=== PATIENT | male | born 1935 ===

== ENCOUNTER 2016-08-29 19:53 | Emergency (ER) | payer OTHER ==
--- NOTE | 2016-08-29 21:49 | ED ORDER SUMMARY ---
..... Patient: SUSAN ESTES OrderSheet [facility] VisitID: [id number] [place] [address] 81y, M Registration Date/Time: 08/29/2016 ORDER SHEET Weight: 74.8 kg (stated) Allergies: No Known Drug Allergy GENERAL ORDERS: Chest 2V Urgent (20:26 08/29/2016 HBivens A.R.N.P.) (Ack 20:32 CHagerty ER Lawn Mower Operator) (20:45 MCampbell) Rapid Influenza Screen (Nasal Pharyngeal) (nare) Urgent (20:26 08/29/2016 HBivens A.R.N.P.) (Ack 20:32 CHagerty ER Lawn Mower Operator) CBC w Diff Urgent (20:08/29/2016 HBivens A.R.N.P.) (Ack 20:32 CHagerty ER Lawn Mower Operator) (21:11 RCollier R.N.) BMP Urgent (20:08/29/2016 HBivens A.R.N.P.) (Ack 20:32 CHagerty ER Lawn Mower Operator) (21:11 RCollier R.N.) MEDICATION ORDERS: Tylenol PO 650 mg (NOW) (20:38 08/29/2016 DBeyer R.N. per protocol) (21:04 DBeyer R.N.) IV FLUIDS: IV Saline Lock (20:26 08/29/2016 HBivens A.R.N.P.) (20:33 DBeyer R.N.) ORDER SHEET NOTES: [Electronically signed by Sameera Hoffman A.R.N.P. (22:44 08/29/2016)] [Electronically signed by Phillip Ashley R.N. (01:23 08/30/2016)] [Electronically locked/signed by Phillip Ashley R.N. (:08/30/2016)]
--- NOTE | 2016-08-29 21:49 | ED NURSING NOTES ---
Clinical Report - Nurses [facility] [address] [place] [address] 08/29/2016 19:53 Patient: SUSAN ESTES TRIAGE Triage time 19:58 Aug 29 2016. Acuity: LEVEL 3. Chief Complaint: FEVER and WEAKNESS. --20:03 Phillip Ashley R.N. 19:58 08/29/16. BP: 137/101. HR: 96. RR: 18. O2 saturation: 94%. Temp: 102.6 F. --20:03 Phillip Ashley R.N. 20:06 08/29/16. Pain level now 0/10. --20:07 Phillip Ashley R.N. Weight: 74.8 kg stated. Height/Length: 67 inches Per Patient. BMI: 25.9. --20:03 Phillip Ashley R.N. Medications Gabapentin Oral. --20:00 Phillip Ashley R.N. Allopurinol Oral. --20:00 Phillip Ashley R.N. Omeprazole Oral. --20:00 Phillip Ashley R.N. Vitamin c Oral. --20:00 Phillip Ashley R.N. Allergies No Known Drug Allergy. --20:00 Phillip Ashley R.N. History Arrived by EMS. Historian: patient. ( Pt arrives via ems report of increased weakness 36 hours. pt slide out of a chair and was unable to get up.). The patient has had fever and weakness. Treatment SUPERVISOR METALIZING: ([id number]). SOCIAL HX: Never smoker. Alcohol use; consumes five beers a week. No drug use. --20:03 Phillip Ashley R.N. PROBLEMS: Spinal Stenosis. --20:02 Phillip Ashley R.N. ADDITIONAL SURGERIES: Knee Surgery. --20:01 Phillip Ashley R.N. Interventions ID band on patient. To treatment room. No allergy band on patient. --20:03 Phillip Ashley R.N. PHYSICAL ASSESSMENT ( Pt had urinated on himself prior to arrival, pt changed and clean underwear given to pt.). GENERAL / NEURO / PSYCH: Alert. Oriented X 4. Appears in no acute distress. He has had constant weakness (difficulty transferring and ambulating). HEENT: Pupils equal, round and reactive to light. No facial asymmetry noted. RESPIRATORY: Respirations not labored. Breath sounds within normal limits. CVS: Normal sinus rhythm noted. GI / : Abdomen soft. SKIN: Skin is warm and dry. --20:04 Phillip Ashley R.N. NURSING PROGRESS NOTES secured entrance monitor and pulse oximeter placed on patient. Patient gowned. Two patient identifiers checked. Call light placed in reach. Side rails up x 2. Bed placed in lowest position. Patient ready for evaluation- chart flagged. --20:06 Phillip Ashley R.N. 20:33 08/29/2016 Site #1 started prior to arrival by EMS via IV in the left antecubital space with an 18g angiocath. --20:33 Phillip Ashley R.N. EKG time: (20:06). EKG was performed by a tech and shown to the ED physician. --20:36 Akbar Sharp 21:04 08/29/2016 Tylenol (Acetaminophen) PO 650 mg given. Allergies verified and confirmed 5 rights. --21:04 Phillip Ashley R.N. 20:30 late entry -. Patient ID band checked for patient name and birthdate: family confirmed. Blood samples drawn from the left antecubital space peripheral IV site with syringe by nurse per protocol ; labeled in presence of the patient and sent to lab: rainbow set. Initial blood discarded and additional blood sent to lab. Line flushed with 10 mL normal saline post blood draw. --21:10 Lisset Man R.N. 21:40 08/29/16. HR: 109. O2 saturation: 93%. --21:40 Phillip Ashley R.N. PA notified. Notified (FLU A +). --21:44 Jose Guadalupe Keller, HANG Custom Dressmaker. DISPOSITION / DISCHARGE 22:23 08/29/2016 Site #1 removed upon discharge. Pressure dressing applied. --22:23 Phillip Ashley R.N. Departure time: 2208 22:24 Aug 29 2016. Condition at departure: improved. Discharge instructions provided and reviewed with the patient and parent. Reviewed medication(s) information. The patient was discharged by the nurse practitioner. He was discharged home and accompanied by spouse. ( Pt ambulated on discharge, pt verbalized understanding of discharge instructions and follow upcare as well as medication admin). --22:24 Phillip Ashley R.N. 22:22 08/29/16. BP: 128/82. HR: 101. RR: 18. O2 saturation: 95%. Temp: 99.9 F. Pain level now 0/10. --22:24 Phillip Ashley R.N. Locked/Released at 08/30/2016 1:23 by Phillip Ashley R.N.
--- NOTE | 2016-08-29 21:49 | ED NURSING NOTES ---
Clinical Report - Nurses [facility] [address] [place] [address] 08/29/2016 19:53 Patient: SUSAN ESTES TRIAGE Triage time 19:58 Aug 29 2016. Acuity: LEVEL 3. Chief Complaint: FEVER and WEAKNESS. --20:03 Phillip Ashley R.N. 19:58 08/29/16. BP: 137/101. HR: 96. RR: 18. O2 saturation: 94%. Temp: 102.6 F. --20:03 Phillip Ashley R.N. 20:06 08/29/16. Pain level now 0/10. --20:07 Phillip Ashley R.N. Weight: 74.8 kg stated. Height/Length: 67 inches Per Patient. BMI: 25.9. --20:03 Phillip Ashley R.N. Medications Gabapentin Oral. --20:00 Phillip Ashley R.N. Allopurinol Oral. --20:00 Phillip Ashley R.N. Omeprazole Oral. --20:00 Phillip Ashley R.N. Vitamin c Oral. --20:00 Phillip Ashley R.N. Allergies No Known Drug Allergy. --20:00 Phillip Ashley R.N. History Arrived by EMS. Historian: patient. ( Pt arrives via ems report of increased weakness 36 hours. pt slide out of a chair and was unable to get up.). The patient has had fever and weakness. Treatment INSTRUMENTATION SPECIALIST: ([id number]). SOCIAL HX: Never smoker. Alcohol use; consumes five beers a week. No drug use. --20:03 Phillip Ashley R.N. PROBLEMS: Spinal Stenosis. --20:02 Phillip Ashley R.N. ADDITIONAL SURGERIES: Knee Surgery. --20:01 Phillip Ashley R.N. Interventions ID band on patient. To treatment room. No allergy band on patient. --20:03 Phillip Ashley R.N. PHYSICAL ASSESSMENT ( Pt had urinated on himself prior to arrival, pt changed and clean underwear given to pt.). GENERAL / NEURO / PSYCH: Alert. Oriented X 4. Appears in no acute distress. He has had constant weakness (difficulty transferring and ambulating). HEENT: Pupils equal, round and reactive to light. No facial asymmetry noted. RESPIRATORY: Respirations not labored. Breath sounds within normal limits. CVS: Normal sinus rhythm noted. GI / : Abdomen soft. SKIN: Skin is warm and dry. --20:04 Phillip Ashley R.N. NURSING PROGRESS NOTES appeals referee and pulse oximeter placed on patient. Patient gowned. Two patient identifiers checked. Call light placed in reach. Side rails up x 2. Bed placed in lowest position. Patient ready for evaluation- chart flagged. --20:06 Phillip Ashley R.N. 20:33 08/29/2016 Site #1 started prior to arrival by EMS via IV in the left antecubital space with an 18g angiocath. --20:33 Phillip Ashley R.N. EKG time: (20:06). EKG was performed by a tech and shown to the ED physician. --20:36 Akbar Sharp 21:04 08/29/2016 Tylenol (Acetaminophen) PO 650 mg given. Allergies verified and confirmed 5 rights. --21:04 Phillip Ashley R.N. 20:30 late entry -. Patient ID band checked for patient name and birthdate: family confirmed. Blood samples drawn from the left antecubital space peripheral IV site with syringe by nurse per protocol ; labeled in presence of the patient and sent to lab: rainbow set. Initial blood discarded and additional blood sent to lab. Line flushed with 10 mL normal saline post blood draw. --21:10 Lisset Man R.N. 21:40 08/29/16. HR: 109. O2 saturation: 93%. --21:40 Phillip Ashley R.N. PA notified. Notified (FLU A +). --21:44 Jose Guadalupe Keller, HANG Medical Diagnostic Radiographer. DISPOSITION / DISCHARGE 22:23 08/29/2016 Site #1 removed upon discharge. Pressure dressing applied. --22:23 Phillip Ashley R.N. Departure time: 2208 22:24 Aug 29 2016. Condition at departure: improved. Discharge instructions provided and reviewed with the patient and parent. Reviewed medication(s) information. The patient was discharged by the nurse practitioner. He was discharged home and accompanied by spouse. ( Pt ambulated on discharge, pt verbalized understanding of discharge instructions and follow upcare as well as medication admin). --22:24 Phillip Ashley R.N. 22:22 08/29/16. BP: 128/82. HR: 101. RR: 18. O2 saturation: 95%. Temp: 99.9 F. Pain level now 0/10. --22:24 Phillip Ashley R.N. Locked/Released at 08/30/2016 1:23 by Phillip Ashley R.N.
--- NOTE | 2016-08-29 21:49 | ED CLINICAL REPORT ---
Clinical Report - Physicians/Mid Levels [facility] [address] [place] [address] 08/29/2016 19:53 Patient: SUSAN ESTES Time Seen: 20:19; initial patient contact, initial documentation, patient care assumed. Arrived- By ambulance. Historian- patient. HISTORY OF PRESENT ILLNESS Chief Complaint: WEAKNESS. The patient has had generalized weakness. No numbness, impaired speech or visual disturbance. No difficulty walking. This started about 2 days ago and is still present. No dizziness, altered mental status, seizure or blackouts. Usually is alert and oriented X3 and has normal mobility. Similar symptoms previously: None. Recent medical care: Not recently seen/assessed. REVIEW OF SYSTEMS The patient has had a subjective fever with chills. No chest pain, difficulty breathing, sore throat, abdominal pain or diarrhea. No vomiting. He has had a moderate cough productive of sputum. He has had sputum production. chills, nasal congestion and cough, doesn't know color of phelgm, doesn't look at it. All systems otherwise negative, except as recorded above. PAST HISTORY See nurses notes. ( PROBLEMS: Spinal Stenosis. --20:02 Phillip Ashley, R.N. ADDITIONAL SURGERIES: Knee Surgery. --20:01 Phillip Ashley, R.N.). SOCIAL HISTORY Never smoker. Regular alcohol use; consumes beer daily. No drug use. No recent travel. Is a local resident. FAMILY HISTORY Negative. ADDITIONAL NOTES The nursing notes have been reviewed with agreement regarding the chief complaint, HPI, ROS, PMH and patient medications and allergies. PHYSICAL EXAM Vital Signs: 08/29/2016 19:58 BP: 137/101. HR: 96. RR: 18. O2 saturation: 94%. Temp: 102.6 F. Have been reviewed as abnormal and appear to be correct. Hypertensive. Heart rate normal. Respiratory rate normal. Febrile. Oxygen saturation normal. Appearance: Alert. No acute distress. Head: Head atraumatic. Eyes: Pupils equal, round and reactive to light. ENT: Normal ENT inspection. Airway intact. Pharynx normal. Neck: Normal inspection. Neck supple. CVS: Normal heart rate and rhythm. Heart sounds normal. Pulses normal. Respiratory: No respiratory distress. Breath sounds abnormal. Mild rales present in the bases bilaterally. Abdomen: Soft and nontender. No organomegaly. Back: Normal inspection. Skin: Skin warm and dry. Normal skin color. No rash. Normal skin turgor. Extremities: Extremities exhibit normal ROM. No lower extremity edema. Neuro: Alert. Oriented X 3. Mood/affect normal. Speech normal. Cranial nerves normal (as tested). No cerebellar findings. No motor deficit. No sensory deficit. LABS, X-RAYS, AND EKG Laboratory Tests: CBC w Diff: (LEXI: 08/29/2016 20:05) ( MsgRcvd 08/29/2016 20:44) Final results Test Result Flag Units (Reference) WHITE BLOOD COUNT 6.7 K/uL (4.5-11.5) RED BLOOD COUNT 3.95 L M/uL (4.50-5.90) HEMOGLOBIN 12.7 L gm/dL (13.5-17.5) HEMATOCRIT 38.5 L % (41.0-53.0) MEAN CELL VOLUME 98 fL (80-100) MEAN CORPUSCULAR HGB 32 pg (26-34) MEAN CORPUSCULAR HGB CONC 33 g/dL (31-37) RED CELL DISTRIBUTION WIDTH 14.2 % (11.6-14.8) PLATELET COUNT 149 L K/uL (150-400) NEUTROPHIL % 81.4 H % (50-75) LYMPH % 9.0 L % (25-40) MONO % 9.0 % (3-14) EOSINOPHIL % 0.3 % (0-4) BASOPHIL % 0.3 % (0-2) BMP: (LEXI: 08/29/2016 20:05) ( MsgRcvd 08/29/2016 20:46) Final results Test Result Flag Units (Reference) GLUCOSE 126 H mg/dL (70-110) BUN 25 H mg/dL (7-18) CREATININE 1.5 H mg/dL (0.6-1.3) Estimated GFR 47.62 mL/min Estimated GFR- 57.72 mL/min Note: Persistent reduction over 3 months in eGFR<60 mL/min/1.73 m2 defines CKD. Patients with eGFR values>=60 mL/min/1.73 m2 may also have CKD if evidence ofpersistent proteinuria. Additional information may be foundat www.kidney.org. SODIUM 142 mmol/L (136-145) POTASSIUM 3.7 mmol/L (3.5-5.1) CHLORIDE 105 mmol/L (98-107) CARBON DIOXIDE 27 mmol/L (21-32) CALCIUM 8.7 mg/dL (8.5-10.1) Rapid Influenza Screen: (LEXI: 08/29/2016 21:03) ( MsgRcvd 08/29/2016 21:44) Final results SPECIMEN DESCRIPTION: NARE Test Result Flag Units (Reference) RAPID INFLUENZA SCREEN CALLED TO: [facility] [place] ED -- DATE: 08/29/16 INFLUENZA A: POSITIVE SCREEN FOR INFLUENZA A INFLUENZA B: NEGATIVE SCREEN FOR INFLUENZA B . PROGRESS AND PROCEDURES Course of Care: 2204. nurse expressed concerns over pt ambulating and him being weak at home at bedside with nurse to see pt ambulate, pt ambulating without issues. Patient and relative counseled in person regarding the patient's stable condition, test results and diagnosis. 21:46. Differential Diagnosis: Other possible considerations: flu, viral illness, uri, bronchitis, pneumonia, anemia, hypothyroid, dehydration. Above considerations are based on history, physical exam, laboratory data and X-Ray data. Differential diagnosis was discussed with patient. Disposition: Discharged home in good and unchanged condition (21:49). Condition: good and stable. CLINICAL IMPRESSION Influenza type A. Acute fever INSTRUCTIONS Alternate Tylenol (Acetaminophen) and Motrin (Ibuprofen) for fever, temperature greater than 101 degrees orally. Take according to label instructions. Drink plenty of fluids. Warnings: GENERAL WARNINGS: Return or contact your physician immediately if your condition worsens or changes unexpectedly, if not improving as expected, or if other problems arise. Specifically return if problem worsens. Prescription Medications: Motrin 600 mg tablets: take 1 tablet orally every 6 hours as needed for stiffness or fever. Dispense thirty (30). No refill. Tamiflu 75 mg: take 1 capsule orally every 12 hours for 5 days. Dispense ten (10). No refills. Substitution is permissible. Follow-up: Follow up with your doctor in about three days even if well. Call for an appointment. Summary of care provided to patient. Understanding of the discharge instructions verbalized by patient and family. (Electronically signed by Sameera Hoffman A.R.N.P. 08/29/2016 22:44)
--- NOTE | 2016-08-29 21:49 | ED ORDER SUMMARY ---
..... Patient: SUSAN ESTES OrderSheet [facility] VisitID: [id number] [place] [address] 81y, M Registration Date/Time: 08/29/2016 ORDER SHEET Weight: 74.8 kg (stated) Allergies: No Known Drug Allergy GENERAL ORDERS: Chest 2V Urgent (20:26 08/29/2016 HBivens A.R.N.P.) (Ack 20:32 CHagerty ER Prenatal Genetic Counselor) (20:45 MCampbell) Rapid Influenza Screen (Nasal Pharyngeal) (nare) Urgent (20:26 08/29/2016 HBivens A.R.N.P.) (Ack 20:32 CHagerty ER Prenatal Genetic Counselor) CBC w Diff Urgent (20:08/29/2016 HBivens A.R.N.P.) (Ack 20:32 CHagerty ER Prenatal Genetic Counselor) (21:11 RCollier R.N.) BMP Urgent (20:08/29/2016 HBivens A.R.N.P.) (Ack 20:32 CHagerty ER Prenatal Genetic Counselor) (21:11 RCollier R.N.) MEDICATION ORDERS: Tylenol PO 650 mg (NOW) (20:38 08/29/2016 DBeyer R.N. per protocol) (21:04 DBeyer R.N.) IV FLUIDS: IV Saline Lock (20:26 08/29/2016 HBivens A.R.N.P.) (20:33 DBeyer R.N.) ORDER SHEET NOTES: [Electronically signed by Sameera Hoffman A.R.N.P. (22:44 08/29/2016)] [Electronically signed by Phillip Ashley R.N. (01:23 08/30/2016)] [Electronically locked/signed by Phillpi Ashley R.N. (:08/30/2016)]
--- NOTE | 2016-08-29 22:14 | DIAGNOSTIC IMAGING REPORT ---
PROCEDURE: XR CHEST 2 VIEW INDICATION: FEVER , initial encounter TECHNIQUE: PA and lateral view. COMPARISON: None. FINDINGS: Lungs are clear. Cardiovascular structures are normal. 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 IMPRESSION: 1. No acute changes.
--- NOTE | 2016-08-30 01:23 | ED DISCHARGE INSTRUCTIONS ---
Patient: SUSAN ESTES General Instructions [facility] VisitID: [id number] [place] [address] 81y, M Registration Date/Time: 08/29/2016 Influenza type A. Acute fever INSTRUCTIONS Alternate Tylenol (Acetaminophen) and Motrin (Ibuprofen) for fever, temperature greater than 101 degrees orally. Take according to label instructions. Drink plenty of fluids. Warnings: GENERAL WARNINGS: Return or contact your physician immediately if your condition worsens or changes unexpectedly, if not improving as expected, or if other problems arise. Specifically return if problem worsens. Prescription Medications: Motrin 600 mg tablets: take 1 tablet orally every 6 hours as needed for stiffness or fever. Dispense thirty (30). No refill. Tamiflu 75 mg: take 1 capsule orally every 12 hours for 5 days. Dispense ten (10). No refills. Substitution is permissible. Follow-up: Follow up with your doctor in about three days even if well. Call for an appointment. Summary of care provided to patient. Understanding of the discharge instructions verbalized by patient and family. ADDITIONAL INFORMATION Febrile Illness, Uncertain Cause (Adult) You have a fever, but the cause is not certain. A fever is a natural reaction of the body to an illness such as infections due to a virus or bacteria. In most cases, the temperature itself is not harmful. It actually helps the body fight infections. A fever does not need to be treated unless you feel very uncomfortable. Sometimes a fever can be an early sign of a more serious infection. Therefore, you should watch for the signs listed below. Home Care: If signs and symptoms are severe, rest at home for the first 2-3 days. When you resume activity, don't let yourself get too tired. Stay away from cigarette smoke (yours and other peoples). You may use acetaminophen (Tylenol) or ibuprofen (Motrin, Advil) to control fever or pain, unless another medicine was prescribed. NOTE: If you have chronic liver or kidney disease or ever had a stomach ulcer or GI bleeding, talk with your doctor before using these medicines. (Aspirin should never be used in anyone under 18 years of age who is ill with a fever. It may cause severe liver damage.) Your appetite may be poor, so a light diet is fine. Avoid dehydration by drinking 6-8 glasses of fluid per day (water, sport drinks such as Gatorade, sodas without caffeine, juices, tea, soup). Extra fluid will help loosen secretions in the nose and lungs. Kldh-waj-brtpziu products will not shorten the duration of the illness but may be helpful for the following symptoms: cough (Robitussin DM); sore throat (Chloraseptic lozenges or spray); nasal and sinus congestion (Actifed or Sudafed). NOTE: Do not use decongestants if you have high blood pressure. Follow Up with your doctor or as advised if you do not start to improve over the next week. Get Prompt Medical Attention if any of the following occur: Cough with lots of colored sputum (mucus) or blood in your sputum Chest pain, shortness of breath, wheezing or difficulty breathing Severe headache, face, neck, throat or ear pain Feeling drowsy or confused Abdominal pain, repeated vomiting or diarrhea Joint pain or a new rash Burning when urinating Fever of 100.4F (38C) oral or higher, not better with fever medication Feeling weak or dizzy Convulsion Taking Your Child's Temperature If your child feels hot, then check the temperature. Under 3 months : Start with a AXILLARY temperature. If it is above 99.0 F (37.2 C), take a RECTAL temperature. 3 months to 4 years : Measure a RECTAL temperature, or an EAR temperature. Over 4 years : Measure an ORAL temperature. Rectal Temperature is the most accurate. Ear temperature is not as accurate as a rectal or oral temperature, but is more convenient and can be used in the 3 month to 4 year old. Other methods such as plastic strips , forehead devices , and pacifier thermometers are even less accurate and they are not recommended. If you do not know how to use a thermometer, ask your nurse or pharmacist. Oral Method: Normal: 98.6 F (37.0 C). Range of normal: Up to 99.0 F (37.2 C). Recommended Age: Use this method for children older than 4 or 5 years of age, only if cooperative. 1) Wait at least 20 minutes after drinking or eating before taking an oral temperature. 2) Place the tip of a the thermometer under the child's tongue. 3) Have child close lips gently, without biting on the thermometer. 4) Keep under the tongue until the thermometer beeps. 5) Remove thermometer and read the temperature in the display. 6) Clean the thermometer with alcohol, or soap and water after each use. Axillary Method (UNDER THE ARM): Normal: 97.6 F (36.6 C) Range of Normal: Up to 98.6 F (37.0 C) Recommended Age: Use this method for children under 4 years of age or any uncooperative child. 1) Make sure armpit is dry and the child does not have clothing between arm and chest. 2) Place the tip of the thermometer high up in the armpit. 4) Hold the child's arm snug against their body with the thermometer in place until it beeps. 5) Remove thermometer and read the temperature in the display. 6) Clean the thermometer with alcohol, or soap and water after each use. Rectal Method: Normal: 99.6 F (37.6 C). Range of Normal: Up to 100.4 F (38.0 C). Recommended age: Use this method for children under 4 years of age or any uncooperative child. 1) Lubricate the tip of a rectal thermometer with a lubricant such as Vaseline jelly or K-Y jelly. 2) Lay your child face down across your lap, or on his/her side with knees bent toward the chest. Spread buttocks so that the anus can be easily seen. 3) Hold the thermometer between your thumb and index finger with the edge of your hand resting on the buttocks. Slowly and gently insert thermometer into the anus about one inch. The tip should slide in easily. Do not force it since they may cause injury. 4) Do not let go of the thermometer! Hold it carefully in place until it beeps. 5) Remove thermometer and read the temperature in the display. 6) Clean the thermometer with alcohol, or soap and water after each use. When To Seek Help Call your doctor or return here if you have an younger than 3 months with a temperature of 100.4 F (38.0 C) or an older child with a fever higher than 104.0 F (40.0 C). Influenza (Adult) Influenza, also called the flu, is a viral illness that affects the air passages of the lungs. It differs from the common cold. It is highly contagious. It may be spread through the air by coughing and sneezing or by direct contact (touching the sick person and then touching your own eyes, nose or mouth). Illness starts 1-3 days after exposure and lasts for 1-2 weeks. Antibiotics are usually not needed unless a complication appears (ear or sinus infection or pneumonia). Symptoms may be mild or severe and can include extreme tiredness (wanting to stay in bed all day), chills, fevers, muscle aching, soreness with eye movement, headache, and a dry, hacking cough. Home Care: Avoid exposure to cigarette smoke (yours or others). Tylenol or ibuprofen (Advil) will help fever, muscle aching, and headache. To avoid risk of liver injury, aspirin should not be used in children and teenagers under 18 with this illness. Nausea and loss of appetite are common. A light diet is recommended. Avoid dehydration by drinking 6-8 glasses of fluids per day (water, sport drinks like Gatorade, soft drinks without caffeine, juices, tea, soup, etc.). Extra fluids will also help loosen secretions in the nose and lungs. Dpim-vcy-ikjjigq cold medicines will not shorten the duration of the illness but may be helpful for the following symptoms: cough (Robitussin DM); sore throat (Chloraseptic lozenges or spray); nasal and sinus congestion (Actifed or Sudafed). [NOTE: Do not use decongestants if you have high blood pressure.] Stay home until your fever has been gone for at least 24 hours (without the use of fever-reducing medications such as ibuprofen). Follow Up with your doctor or as directed by our staff if you are not improving over the next week. Note: If you are age 65 or older, or if you have chronic asthma or COPD, we recommend a pneumococcal vaccinationevery five years. All adults shouldreceive a yearly influenza vaccination every . Ask your doctor about this. Get Prompt Medical Attention if any of the following occur: Cough with lots of colored sputum (mucus) or blood in your sputum Chest pain, shortness of breath, wheezing, or difficulty breathing Severe headache, face, neck or ear pain New rash Fever of 100.4F (38C) oral or higher, not better with fever medication Confusion, behavior change or seizure Severe weakness or dizziness Fever Control (Adult) A fever is a natural reaction of the body to an illness. In most cases, the temperature itself is not harmful. It actually helps the body fight infections. A fever does not need to be treated unless you feel very uncomfortable. Home Care If you feel warm, check your temperature. If you feel very uncomfortable and your temperature is at or higher than 100.4F (38C) oral, you may take acetaminophen (Tylenol) every 4 to 6 hours. If you cant take or keep down oral medicine, ask your pharmacist for Tylenol suppositories, which you can get without a prescription. If the fever does not respond to acetaminophen within 1 hour, take ibuprofen (Advil or Motrin). If this works, keep taking the ibuprofen every 6 to 8 hours. Note: If you have chronic liver or kidney disease or ever had a stomach ulcer or GI bleeding, talk with your doctor before using these medications. If either medication alone does not keep the fever down, you may alternate the two medicines every 3 to 4 hours, only if your healthcare provider has instructed you to do so. For example, take Motrin then wait 3 hours, take Tylenol then wait 3 hours, take Motrin, and so on. Follow your healthcare providers instructions exactly. Clothing: Keep clothing light because excess body heat is lost through the skin. The fever will go up if you wear extra layers or wrap in blankets. Fluids: Fever causes the body to lose water through evaporation. Drink plenty of fluids such as water, juice, clear sodas, aguilar christofer, or lemonade. Do not use aspirin in anyone under 18 years of age who is ill with a fever. It can cause severe liver damage. Follow Up with your doctor or as advised by our staff if you do not get better after 48 hours. Get Prompt Medical Attention if any of the following occur: Fever does not get better after taking fever medication Fast or difficult breathing Earache, sinus pain, stiff or painful neck, headache, repeated diarrhea or vomiting You feel unusually irritable, drowsy, or confused A rash appears You feel weak or dizzy, or that you might faint Ibuprofen Oral tablet What is this medicine? IBUPROFEN (eye BYOO proe fen) is a non-steroidal anti-inflammatory drug (NSAID). It is used for dental pain, fever, headaches or migraines, osteoarthritis, rheumatoid arthritis, or painful monthly periods. It can also relieve minor aches and pains caused by a cold, flu, or sore throat. How should I use this medicine? Take this medicine by mouth with a glass of water. Follow the directions on the prescription label. Take this medicine with food if your stomach gets upset. Try to not lie down for at least 10 minutes after you take the medicine. Take your medicine at regular intervals. Do not take your medicine more often than directed. A special MedGuide will be given to you by the pharmacist with each prescription and refill. Be sure to read this information carefully each time. Talk to your brass buffer regarding the use of this medicine in children. Special care may be needed. What side effects may I notice from receiving this medicine? Side effects that you should report to your doctor or health special needs caregiver as soon as possible: allergic reactions like skin rash, itching or hives, swelling of the face, lips, or tongue black or bloody stools, blood in the urine or in vomit breathing problems changes in vision chest pain general ill feeling or flu-like symptoms nausea or vomiting redness, blistering, peeling or loosening of the skin, including inside the mouth slurred speech or weakness on one side of the body stomach pain unexplained weight gain or swelling unusually weak or tired yellowing of eyes or skin Side effects that usually do not require medical attention (report to your doctor or health special needs caregiver if they continue or are bothersome): constipation or diarrhea dizziness gas or heartburn stomach upset What may interact with this medicine? Do not take this medicine with any of the following medications: cidofovir ketorolac methotrexate pemetrexed This medicine may also interact with the following medications: alcohol aspirin diuretics lithium other drugs for inflammation like prednisone warfarin What if I miss a dose? If you miss a dose, take it as soon as you can. If it is almost time for your next dose, take only that dose. Do not take double or extra doses. Where should I keep my medicine? Keep out of the reach of children. Store at room temperature between 15 and 30 degrees C (59 and 86 degrees F). Keep container tightly closed. Throw away any unused medicine after the expiration date. What should I tell my health care provider before I take this medicine? They need to know if you have any of these conditions: asthma cigarette smoker drink more than 3 alcohol containing drinks a day heart disease or circulation problems such as heart failure or leg edema (fluid retention) high blood pressure kidney disease liver disease stomach bleeding or ulcers an unusual or allergic reaction to ibuprofen, aspirin, other NSAIDS, other medicines, foods, dyes, or preservatives or trying to get breast-feeding What should I watch for while using this medicine? Tell your doctor or healthcare professional if your symptoms do not start to get better or if they get worse. This medicine does not prevent heart attack or stroke. In fact, this medicine may increase the chance of a heart attack or stroke. The chance may increase with longer use of this medicine and in people who have heart disease. If you take aspirin to prevent heart attack or stroke, talk with your doctor or health special needs caregiver. Do not take other medicines that contain aspirin, ibuprofen, or naproxen with this medicine. Side effects such as stomach upset, nausea, or ulcers may be more likely to occur. Many medicines available without a prescription should not be taken with this medicine. This medicine can cause ulcers and bleeding in the stomach and intestines at any time during treatment. Ulcers and bleeding can happen without warning symptoms and can cause . To reduce your risk, do not smoke cigarettes or drink alcohol while you are taking this medicine. You may get drowsy or dizzy. Do not drive, use machinery, or do anything that needs mental alertness until you know how this medicine affects you. Do not stand or sit up quickly, especially if you are an older patient. This reduces the risk of dizzy or fainting spells. This medicine can cause you to bleed more easily. Try to avoid damage to your teeth and gums when you brush or floss your teeth. Oseltamivir Phosphate Oral capsule What is this medicine? OSELTAMIVIR (os el YANES i vir) is an antiviral medicine. It is used to prevent and to treat some kinds of influenza or the flu. It will not work for colds or other viral infections. How should I use this medicine? Take this medicine by mouth with a glass of water. Follow the directions on the prescription label. Start this medicine at the first sign of flu symptoms. You can take it with or without food. If it upsets your stomach, take it with food. Take your medicine at regular intervals. Do not take your medicine more often than directed. Take all of your medicine as directed even if you think you are better. Do not skip doses or stop your medicine early. Talk to your brass buffer regarding the use of this medicine in children. While this drug may be prescribed for children as young as 14 days for selected conditions, precautions do apply. What side effects may I notice from receiving this medicine? Side effects that you should report to your doctor or health special needs caregiver as soon as possible: allergic reactions like skin rash, itching or hives, swelling of the face, lips, or tongue anxiety, confusion, unusual behavior breathing problems hallucination, loss of contact with reality redness, blistering, peeling or loosening of the skin, including inside the mouth seizures Side effects that usually do not require medical attention (report to your doctor or health special needs caregiver if they continue or are bothersome): cough diarrhea dizziness headache nausea, vomiting stomach pain What may interact with this medicine? Interactions are not expected. What if I miss a dose? If you miss a dose, take it as soon as you remember. If it is almost time for your next dose (within 2 hours), take only that dose. Do not take double or extra doses. Where should I keep my medicine? Keep out of the reach of children. Store at room temperature between 15 and 30 degrees C (59 and 86 degrees F). Throw away any unused medicine after the expiration date. What should I tell my health care provider before I take this medicine? They need to know if you have any of the following conditions: heart disease immune system problems kidney disease liver disease lung disease an unusual or allergic reaction to oseltamivir, other medicines, foods, dyes, or preservatives or trying to get breast-feeding What should I watch for while using this medicine? Visit your doctor or health special needs caregiver for regular check ups. Tell your doctor if your symptoms do not start to get better or if they get worse. If you have the flu, you may be at an increased risk of developing seizures, confusion, or abnormal behavior. This occurs early in the illness, and more frequently in children and teens. These events are not common, but may result in accidental injury to the patient. Families and caregivers of patients should watch for signs of unusual behavior and contact a doctor or health special needs caregiver right away if the patient shows signs of unusual behavior. This medicine is not a substitute for the flu shot. Talk to your doctor each year about an annual flu shot. You have been given the following additional information: Febrile Illness, Uncertain Cause (Adult) Thermometer Use Influenza (Adult) Fever Control (Adult) Ibuprofen Oral tablet Oseltamivir Phosphate Oral capsule (Electronically signed by Sameera Hoffman A.R.N.P. 08/29/2016 22:44)
--- NOTE | 2016-08-30 01:24 | ED MAR SUMMARY ---
..... Medication Administration Record [address] [place] [address] Patient: SUSAN ESTES Visit ID: [id number] 81y, M Weight: 74.8 kg Height/Length: 67 in BMI: 25.9 ALLERGIES: No Known Drug Allergy Given 21:04 08/29/2016 Phillip Ashley R.N. Medication Administered: TYLENOL [PO] (ACETAMINOPHEN), Dose: 650 mg PO. Medication Ordered: Tylenol PO 650 mg (NOW).
--- NOTE | 2016-08-30 01:24 | ED MED RECONCILIATION SUMMARY ---
Patient: SUSAN ESTES Medication Reconciliation Report [facility] VisitID: [id number] [place] [address] 81y, M Registration Date/Time: 08/29/2016 Weight: 74.8 kg Height/Length: 67 in. BMI: 25.9 ALLERGIES: No Known Drug Allergy The patient's Home Medications are listed below: THE FOLLOWING MEDICATIONS NEED TO BE RECONCILED: Allopurinol Oral Gabapentin Oral Omeprazole Oral Vitamin c Oral The source(s) of the original Home Medication information: Not obtained. The following Medications were given to the patient in the Emergency Department: Tylenol [PO] PO 650 mg, administered: 08/29/2016 9:04:00 PM The following Medications were prescribed to the patient: Motrin 600 mg tablets: take 1 tablet orally every 6 hours as needed for stiffness or fever. Dispense thirty (30). No refill. -- Sameera Hoffman, AbdullahiR.N.P. Tamiflu 75 mg: take 1 capsule orally every 12 hours for 5 days. Dispense ten (10). No refills. Substitution is permissible. -- Sameera Hoffman A.R.N.P.
--- NOTE | 2016-08-30 01:24 | ED MED RECONCILIATION SUMMARY ---
Patient: SUSAN ESTES Medication Reconciliation Report [facility] VisitID: [id number] [place] [address] 81y, M Registration Date/Time: 08/29/2016 Weight: 74.8 kg Height/Length: 67 in. BMI: 25.9 ALLERGIES: No Known Drug Allergy The patient's Home Medications are listed below: THE FOLLOWING MEDICATIONS NEED TO BE RECONCILED: Allopurinol Oral Gabapentin Oral Omeprazole Oral Vitamin c Oral The source(s) of the original Home Medication information: Not obtained. The following Medications were given to the patient in the Emergency Department: Tylenol [PO] PO 650 mg, administered: 08/29/2016 9:04:00 PM The following Medications were prescribed to the patient: Motrin 600 mg tablets: take 1 tablet orally every 6 hours as needed for stiffness or fever. Dispense thirty (30). No refill. -- Sameera Hoffman, AbdullahiR.N.P. Tamiflu 75 mg: take 1 capsule orally every 12 hours for 5 days. Dispense ten (10). No refills. Substitution is permissible. -- Sameera Hoffman A.R.N.P.
--- NOTE | 2016-08-30 01:24 | ED MAR SUMMARY ---
..... Medication Administration Record [address] [place] [address] Patient: SUSAN ESTES Visit ID: [id number] 81y, M Weight: 74.8 kg Height/Length: 67 in BMI: 25.9 ALLERGIES: No Known Drug Allergy Given 21:04 08/29/2016 Phillip Ashley R.N. Medication Administered: TYLENOL [PO] (ACETAMINOPHEN), Dose: 650 mg PO. Medication Ordered: Tylenol PO 650 mg (NOW).
== END 2016-08-29 22:09 | disposition home or self-care (01) ==
LOC: ED SRH 19:53
DX: J10.1 Influenza due to other identified influenza virus with other respiratory manifestations (principal)
CPT/HCPCS: 90047; 91400; 95059